=== PATIENT | male | born 1975 | race African-American/Black ===

== ENCOUNTER 2017-10-12 20:56 | Emergency (ER) | payer OTHER, SELFPAY ==
--- NOTE | 2017-10-12 22:16 | RAD ---
THREE VIEWS RIGHT HAND: History: Patient states he jammed hand while sawing planks. FINDINGS: AP, lateral, and oblique views of the right hand obtained and demonstrates what appears to be a fract ure in the distal aspect of the fifth right metacarpal compatible with a boxer's type fracture. The a ge of this is indeterminate. The rest of the right hand is unremarkable. IMPRESSION: Fracture likely in the distal fifth right metacarpal, indeterminate age. No other acute abnormalities seen. POS: SAW
== END 2017-10-12 21:58 | disposition home or self-care (01) ==
LOC: ERS 20:56
DX: S62.336A Displaced fracture of neck of fifth metacarpal bone, right hand, initial encounter for closed fracture (principal); W22.8XXA Striking against or struck by other objects, initial encounter
CPT/HCPCS: 29125

== ENCOUNTER 2018-02-15 21:25 | Emergency (ER) | payer SELFPAY | END 2018-02-16 00:56 | disposition left against medical advice (07) | LOC: ERS 21:25 | DX: Z53.21 Procedure and treatment not carried out due to patient leaving prior to being seen by health care provider (principal) ==

== ENCOUNTER 2018-02-16 08:04 | Emergency (ER) | payer SELFPAY ==
[2018-02-16] MEDS ORDERED: Lidocaine 2% PF 5 ML VIAL ONE (10:16)
[2018-02-16] MEDS ORDERED: Bacitracin Zinc 1 Packet ONE (11:05)
== END 2018-02-16 11:09 | disposition home or self-care (01) ==
LOC: ERS 08:04
DX: L02.212 Cutaneous abscess of back [any part, except buttock and flank] (principal); L03.312 Cellulitis of back [any part except buttock and flank]
CPT/HCPCS: 10060; J2001

== ENCOUNTER 2018-08-03 20:56 | Emergency (ER) | payer SELFPAY ==
[2018-08-03] MEDS ORDERED: Lidocaine 1% PF 5 ML VIAL ONE (22:00)
[2018-08-03] MEDS ORDERED: Adacel (T-DAP) 0.5 ML VIAL ONE (22:00)
== END 2018-08-03 22:22 | disposition home or self-care (01) ==
LOC: ERS 20:56
DX: L02.31 Cutaneous abscess of buttock (principal)
CPT/HCPCS: 10061; 90715; J2001

== ENCOUNTER 2019-03-17 20:57 | Emergency (ER) | payer SELFPAY | END 2019-03-17 21:46 | disposition home or self-care (01) | LOC: ERS 20:57 | DX: L03.317 Cellulitis of buttock (principal) | CPT/HCPCS: 99283 ==

== ENCOUNTER 2019-04-30 18:48 | Emergency (ER) | payer SELFPAY ==
[2019-04-30] MEDS ORDERED: EPINEPHrine 1 MG/ML AMP ONE (19:08)
[2019-04-30] MEDS ORDERED: methylPREDNISolone Sod Succ/PF 125 MG/2 ML VIAL ONE (19:09)
[2019-04-30] MEDS ORDERED: Famotidine/PF 20 mg/2ml Vial ONE (19:09)
[2019-04-30 19:42] LABS: #Eosinphils 0.1 thou/uL (0.0-0.7); #Monocytes 0.4 thou/uL (0.11-0.59); #Neutrophils 2.8 thou/uL (1.40-6.50); %Eosinophils 1.2 % (0.0-10.0); %Lymphocytes 38.3 % (21.0-51.0); %Monocytes 7.4 % (0.0-10.0); %Neutrophils 53.1 % (42.0-75.0); Hemoglobin 15.7 g/dL (14.0-18.0); Mean Corpuscular Volume 85.4 fL (78.0-98.0); Mean Platelet Volume 8.7 fL (7.4-10.4); Platelet Count 189 thou/uL (130-400); RBC Distribution Width 12.4 % (11.5-14.5); White Blood Cell (WBC) Count 5.2 thou/uL (4.8-10.8)
[2019-04-30 19:56] LABS: ALT (SGPT) 33 U/L (8-55); AST (SGOT) 35 U/L (5-34); Albumin 4.6 g/dL (3.5-5.0); Alkaline Phosphatase 75 U/L (40-150); Anion Gap 17 mmol/L (10-20); BUN (Urea Nitrogen) 14 mg/dL (8.9-20.6); Bilirubin, Total 1.1 mg/dL (0.2-1.2); Calc. Creatinine Clearance 0 mL/min (70-130); Carbon Dioxide 21 mmol/L (22-29); Chloride 97 mmol/L (98-107); Estimated GFR-MDRD 70; Glucose 404 mg/dL (70-105); Potassium 4.2 mmol/L (3.5-5.1); Protein, Total 8.6 g/dL (6.0-8.3); Sodium 131 mmol/L (136-145)
== END 2019-04-30 22:27 | disposition home or self-care (01) ==
LOC: ERS 18:48
DX: T63.441A Toxic effect of venom of bees, accidental (unintentional), initial encounter (principal); T78.2XXA Anaphylactic shock, unspecified, initial encounter
CPT/HCPCS: 80053; 85025; 96372; 96374; 96375; J0171; J2930; S0028

== ENCOUNTER 2019-05-12 16:30 | Emergency (ER) | payer SELFPAY | END 2019-05-12 19:12 | disposition left against medical advice (07) | LOC: ERS 16:30 | DX: Z53.21 Procedure and treatment not carried out due to patient leaving prior to being seen by health care provider (principal) ==

== ENCOUNTER 2019-07-13 21:16 | Emergency (ER) | payer SELFPAY | END 2019-07-13 21:34 | disposition home or self-care (01) | LOC: ERS 21:16 | DX: L02.01 Cutaneous abscess of face (principal); L03.211 Cellulitis of face | CPT/HCPCS: 10160 ==

== ENCOUNTER 2020-11-01 00:03 | Emergency (ER) | payer OTHER, SELFPAY | END 2020-11-01 01:55 | disposition home or self-care (01) | LOC: ERS 00:03 | DX: J02.8 Acute pharyngitis due to other specified organisms (principal) | CPT/HCPCS: 87081; 87430; 99284 ==

== ENCOUNTER 2020-11-02 02:51 | Emergency (ER) | payer SELFPAY ==
[2020-11-02] MEDS ORDERED: Morphine 4 MG/ML VIAL ONE (03:50)
[2020-11-02] MEDS ORDERED: Ketorolac Tromethamine 30 MG/ML VIAL ONE (03:51)
[2020-11-02] MEDS ORDERED: Dexamethasone 10 MG/ML VIAL ONE (03:51)
[2020-11-02 04:24] LABS: #Basophils 0.1 thou/uL (0.0-0.2); #Eosinphils 0.1 thou/uL (0.0-0.7); #Lymphocytes 3.1 thou/uL (1.20-3.40); #Monocytes 1.3 thou/uL (0.11-0.59); #Neutrophils 8.5 thou/uL (1.40-6.50); %Basophils 0.6 % (0.0-1.0); %Lymphocytes 23.8 % (21.0-51.0); %Neutrophils 64.6 % (42.0-75.0); Hemoglobin 15.2 g/dL (14.0-18.0); Mean Corpuscular HGB CONC 33.8 g/dL (32.0-36.0); Mean Corpuscular Volume 85.8 fL (78.0-98.0); Mean Platelet Volume 8.8 fL (7.4-10.4); Platelet Count 203 thou/uL (130-400); Red Blood Cell (RBC) Count 5.24 mill/uL (4.70-6.10); White Blood Cell (WBC) Count 13.2 thou/uL (4.8-10.8)
[2020-11-02 04:44] LABS: Anion Gap 15 mmol/L (10-20); BUN (Urea Nitrogen) 21 mg/dL (8.9-20.6); Calc. Creatinine Clearance 0 mL/min (70-130); Calcium 9.3 mg/dL (7.8-10.44); Carbon Dioxide 26 mmol/L (22-29); Chloride 100 mmol/L (98-107); Glucose 292 mg/dL (70-105); Potassium 4.2 mmol/L (3.5-5.1); Sodium 137 mmol/L (136-145)
[2020-11-02] MEDS ORDERED: Clindamycin/D5W 900 mg/50 ml Premix Bag ONE (04:53)
[2020-11-02] MEDS ORDERED: Insulin Regular 300 UNITS/3 ML VIAL ONE (06:28)
--- NOTE | 2020-11-02 08:22 | CT ---
PRELIMINARY REPORT/DIRECT RADIOLOGY/EMERGENCY AFTER HOURS PROCEDURE: EXAM: CT Neck with Intravenous Contrast. CLINICAL HISTORY: 45-year-old male presents with left throat pain for 2 days. Patient was seen yester day for the same thing and diagnosed with pharyngitis and was given Decadron and an antibiotic injection. Patient returns today with stable vital signs complaining of left posterior throat pain le ft-sided face pain. TECHNIQUE: Axial computed tomography images of the neck with intravenous contrast. Sagittal and coron al reformations performed. CONTRAST: With; ISOVUE 370,100mL COMPARISON: None FINDINGS: Left peritonsillar disorganized fluid extends over the region measuring approximately 2 x 2 cm on axial series 2, image 32. No focal organized drainable fluid collection identified. There is mild deviation of the airway to the right. The airway remains patent. Carotid and jugular vessels are normal in caliber and appear patent. Reactive asymmetric left-sided cervical lymphadenopathy. No soft tissue mass identified. Imaged portions of the paranasal sinuses and mastoid air cells are without significant abnormality. T he cervical spine is intact. The lung apices are unremarkable. The imaged portion of the brain is unremarkable. IMPRESSION: Left peritonsillar disorganized fluid measures approximately 2 x 2 cm. No focal drainable fluid colle ction. The airway is patent and slightly deviated to the right. No evident vascular complication. ELECTRONICALLY SIGNED BY: Lui sDaniel Dunn MD Nov 02, 2020 5:01:49 AM [employer] HELPER FINAL REPORT SOFT TISSUE NECK CT SCAN WITH CONTRAST: EMERGENCY AFTER HOURS EXAM TIME: 4:17 AM. DATE: 11/02/2020. Evidence for minimal soft tissue swelling and edema and poorly defined fluid density in the left divine tonsillar region and extending somewhat caudally in the left parapharyngeal region nonspecific, concerning for some type of acute inflammatory process but no evidence for focal drainable abscess. No significant adenopathy. This report agrees with the preliminary report. Transcribed Date/Time: 11/02/2020 8:37 AM
[2020-11-02] MEDS ORDERED: Iopamidol-370 76% 500 ML 1 ML ONE (11:24)
== END 2020-11-02 06:49 | disposition home or self-care (01) ==
LOC: ERS 02:51
DX: J36 Peritonsillar abscess (principal)
CPT/HCPCS: 36416; 70491; 80048; 85025; 87081; 87430; 96365; 96375; J1100; J1815; J1885; J2270; J3490; Q9967

== ENCOUNTER 2020-11-23 19:40 | Emergency (ER) | payer SELFPAY ==
[2020-11-23] MEDS ORDERED: Ketorolac Tromethamine 30 MG/ML VIAL ONE (20:39)
--- NOTE | 2020-11-23 20:43 | RAD ---
Right elbow 4 views HISTORY: Elbow pain. FINDINGS: Radiocapitellar alignment is maintained. No acute fracture, dislocation, or fluid distention of the joint capsule. The 0.8 cm oval well marginated focus of calcification immediately lateral to the lateral humeral epi condyle may represent an old avulsion injury or chronic tendinitis. IMPRESSION : No acute abnormalities are demonstrated.
== END 2020-11-23 21:13 | disposition home or self-care (01) ==
LOC: ERS 19:40
DX: M25.521 Pain in right elbow (principal); Z79.899 Other long term (current) drug therapy
CPT/HCPCS: 96372; 99283; J1885

== ENCOUNTER 2021-04-25 18:37 | Emergency (ER) | payer SELFPAY | END 2021-04-25 19:38 | disposition home or self-care (01) | LOC: ERS 18:37 | DX: M77.8 Other enthesopathies, not elsewhere classified (principal); M65.4 Radial styloid tenosynovitis [de Quervain] ==

== ENCOUNTER 2024-11-28 12:27 | Emergency (ER) | payer SELFPAY | END 2024-11-28 15:24 | disposition home or self-care (01) | LOC: ERS 12:27 | DX: B34.9 Viral infection, unspecified (principal) | CPT/HCPCS: 71045; 87428 ==

== ENCOUNTER 2024-12-09 21:50 | Emergency (ER) | payer SELFPAY ==
[2024-12-09] MEDS ORDERED: Lidocaine 1% PF 5 ML VIAL ONE (22:38)
[2024-12-09] MEDS ORDERED: Triple Antibiotic Oint 1 GM Packet ONE (23:20)
== END 2024-12-09 23:36 | disposition home or self-care (01) ==
LOC: ERS 21:50
DX: S51.812A Laceration without foreign body of left forearm, initial encounter (principal); E11.9 Type 2 diabetes mellitus without complications; W26.8XXA Contact with other sharp object(s), not elsewhere classified, initial encounter; Y99.0 Civilian activity done for income or pay
CPT/HCPCS: 12002; 99282